=== PATIENT | female | born 1945 | race Caucasian/White ===

== ENCOUNTER 2023-08-11 21:31 | Emergency (ER) | payer MEDICARE, SELFPAY ==
[2023-08-11 21:33] VITALS: BP 187/85; PULSE 61; RESP 18; TEMP 36.2; O2SAT 99; BMI 25.4
--- NOTE | 2023-08-11 22:26 | CT_ITS ---
EXAM: CT HEAD WITHOUT INTRAVENOUS CONTRAST CLINICAL INDICATION: Neuro deficit, acute, stroke suspected TECHNIQUE: Multiple axial images were obtained of the head without intravenous contrast. This CT exam was performed using one or more of the following dose reduction techniques: automated exposure control, adjustment of the mA and/or kV according to patient size, and/or use of iterative reconstruction technique. RADIATION DOSE: Total DLP: 829.85 mGy-cm. COMPARISON: No relevant prior studies available. FINDINGS: BRAIN AND EXTRA-AXIAL SPACES: Findings of mild age-related atrophy present with prominence of the cortical sulci, basal cisterns, sylvian fissures and ventricles. Moderate patchy chronic small vessel ischemic changes noted within the deep white matter tracts. Tiny old lacunar infarction noted within the left thalamus. No intra- or extra-axial hemorrhage. No intracranial mass or mass effect. Posterior fossa structures are unremarkable. [place]-white matter differentiation is preserved. BONES/JOINTS: No discrete lytic or blastic abnormalities. VASCULATURE: Atherosclerotic vascular calcification is present. The middle cerebral arteries are not hyperdense. SINUSES: Clear. Right maxillary antrum is smaller than the left. MASTOID AIR CELLS: Unremarkable. Clear. ORBITS: Previous cataract extraction. SELLA: Empty sella is incidentally noted. ASPECTS SCORE: 10/10. CT/Brain/Head without Contrast IMPRESSION: 1. Atrophy with patchy chronic small vessel ischemic changes. 2. No acute intracranial abnormality identified. Electronically Signed: Charlie Soto MD at 23:31 EDT ,
--- NOTE | 2023-08-11 22:26 | EKG12_ITS ---
Test Reason : DYSRHYTHMIA Blood Pressure : / mmHG Vent. Rate : 054 BPM Atrial Rate : 054 BPM P-R Int : 178 ms QRS Dur : 090 ms QT Int : 462 ms P-R-T Axes : 023 -26 -13 degrees QTc Int : 438 ms Sinus bradycardia Minimal voltage criteria for LVH, may be normal variant ( R in aVL ) ST & T wave abnormality, consider anterolateral ischemia Abnormal ECG Confirmed by Alex Lawrence ([id number]), script editor WILMA LOJA ([id number]) on 08/12/2023 8:10:30 AM Referred By: Confirmed By:Alex Lawrence
[2023-08-11 22:53] VITALS: BP 203/72; PULSE 57; RESP 19; O2SAT 97
[2023-08-11 23:06] LABS: Absolute Lymphocyte Count 2.23 X10^3/uL (0.83-4.51); Absolute Neutrophil Count 2.5 X10^3/uL (2.0-7.7); Basophil# 0.06 X10^3/uL; Basophil% 1.1 % (0-1); Eosinophil# 0.08 X10^3/uL; Eosinophils% 1.5 % (0-5); Hematocrit 33.9 % (37-47); Hemoglobin 11.2 g/dL (12.0-15.0); Lymphocyte # 2.23 X10^3/ul (0.83-4.51); Lymphocyte % 41.5 % (19-41); Mean Corpuscular Hgb 29.5 pg (27.0-32.0); Mean Corpuscular Volume 89.2 fL (81-99); Monocyte# 0.53 X10^3/uL; Monocyte% 9.9 % (0-10); NRBC Flagged by Analyzer 0 % (0-5); Neutrophil # 2.45 X10^3/uL (2.7-7.7); Neutrophil % 45.6 % (47-70); Platelet Count 219 K/mm3 (150-450); RBC Distribution Width CV 14.2 % (11.6-14.6); RBC Distribution Width SD 45.5 fl (35.1-43.9); White Blood Count 5.4 K/mm3 (4.4-11.0)
[2023-08-11 23:34] LABS: Anion Gap 6 (5-15); BUN 11 mg/dL (7-18); BUN/Creat Ratio 15.2 RATIO (10-20); Calcium,Total 9.1 mg/dL (8.5-10.1); Chloride 105 mmol/L (98-107); Creatinine, Serum 0.72 mg/dL (0.55-1.02); EST Glomerular Filtration Rate 83 mL/min (>60); Est Glom Filt Rate - Afr Amer 101 mL/min (>60); Estimated Creatinine Clearance 53.06 ml/min; Glucose 184 mg/dL (74-106); Potassium 3.4 mmol/L (3.5-5.1); Sodium Level 137 mmol/L (136-145)
[2023-08-11 23:51] VITALS: BP 165/93; PULSE 56; RESP 18; O2SAT 99
--- NOTE | 2023-08-12 00:05 | ED.VIS.STROK ---
HPI History of Present Illness Chief Complaint: Eye Problem Informant: patient and family Narrative Narrative: Patient has symptoms for the past 3 weeks including blurry vision right eye, diplopia, disequilibrium/dizziness that she has with standing up and with turning her head in certain positions sometimes but it is intermittent, numbness in both feet/legs. She feels like her right arm is a little weak. She has had no problems with speech or understanding others. No fevers, chills, other illness. She states she had a blood test today and as a result of what ever it showed, she was told to go to the hospital and get an MRI of her brain. She does not have the results of any of these labs and they were not done at our facility. She states she went to her local hospital which is [place], and she states that they told her if she wanted an MRI she needed to come here to this hospital so she presents to the ER for that reason. She states she already saw an eye doctor and they told her that they do not think it is her eye that is giving her the vision problems. [facility] Medical History Diabetes Migraines Hypertension Breast CA Colonoscopy planned Prolapsed bladder Cataract Carpal tunnel syndrome Home Medications ?Medication ?Instructions ?Recorded ?Last Taken ?Type meclizine 25 mg tablet 25 mg PO Q8H PRN PRN Dizziness #20 08/12/23 Unknown Rx tabs simvastatin 80 mg tablet 80 mg PO DAILY #30 tabs 08/12/23 Unknown Rx Allergy/AdvReac Type Severity Reaction Status Date / Time Unable to Assess Allergy Verified 08/11/23 21:33 Surgical History Stented coronary artery H/O lumpectomy Hx of cholecystectomy Social History Smoking Status: Never smoker ROS ROS ED Constitutional Constitutional ED: Denies chills or fever(s) Eyes Eyes: Reports blurry vision right, change in vision and diplopia ENT ENT ED: Reports ear pain right; Denies rhinorrhea or sore throat Cardiovascular Cardiovascular: Denies chest pain or palpitations Respiratory/Chest Respiratory/Chest: Reports dyspnea on exertion and other Details: Dyspnea on exertion is chronic and no different than usual ; Denies cough Gastrointestinal Gastrointestinal: Denies abdominal pain, diarrhea, nausea or vomiting Genitourinary Genitourinary ED: Denies dysuria or hematuria Musculoskeletal Musculoskeletal: Denies back pain or neck pain Integumentary Denies abscess or rash Neurologic Neurologic: Reports headache(s), paresthesias and weakness Psychiatric Psychiatric: Denies suicidal thoughts EXAM Physical Exam Const Vital Signs: 08/11/23 21:33 08/11/23 22:40 08/11/23 22:53 Temperature 97.1 F L Temperature Source Temporal Pulse Rate 61 57 L Respiratory Rate 18 19 H Respiratory Effort Normal Non-Labored Blood Pressure 187/85 H 203/72 H Blood Pressure Mean 119 115 Pulse Ox 99 97 Oxygen Delivery Method Room Air Room Air 08/11/23 23:51 Temperature Temperature Source Pulse Rate 56 L Respiratory Rate 18 Respiratory Effort Blood Pressure 165/93 H Blood Pressure Mean 117 Pulse Ox 99 Oxygen Delivery Method Room Air Positive well nourished and well developed General Appearance ED: well developed and NAD HEENT Reports moist mucous membranes HEENT Narrative: TMs not visible due to hard cerumen blocking all visibility. No discomfort with manipulating the pinna or the tragus bilaterally. No periauricular lymphadenopathy or mastoid tenderness/swelling. normocephalic and atraumatic Eyes PERRL and EOMs intact bilaterally Neck full ROM and supple Resp normal respiratory effort and clear to auscultation bilaterally Cardio regular rate, regular rhythm and no murmurs GI non-tender and non-distended Auscultation: normoactive bowel sounds Palpation: soft Back/Spine no CVA tenderness General Back: other FROM Extremity normal to inspection General Extremety ED: Negative for edema, pulses abnormal or tenderness General Extremity: Negative for edema or pulses abnormal Neuro oriented x3 and CN's II-XII intact bilaterally Neuro Narrative: Decree sensation subjectively both lower extremities symmetrically, but sensation is grossly intact. Normal speech. Sensorium / Orientation: awake and alert Motor Exam: strength 5/5 throughout Psych mental status grossly normal Skin no rashes or lesions noted and no wounds NIHSS NIHSS Initial: 1a Level of Consciousness: 0 1b LOC Questions (Score 2 if aphasic/stupor): 0 1c LOC Commands (Only score 1st attempt): 0 2 Best Gaze (If aphasic, use reflexive mvmts.): 0 3 Visual: 0 4 Facial Palsy: 0 5 Motor Arm Right (UN = amputation/fusion): 0 5 Motor Arm Left: 0 6 Motor Leg Right: 0 6 Motor Leg Left: 0 7 Limb ataxia (Only + if out of proportion): 2 (Seems to be ataxic in all 4 extremities, patient states it is related to the fact that she has diplopia and blurry vision in the right eye) 8 Sensory (Aphasia/stupor=0 or 1, coma=2): 1 9 Best Language: 0 10 Dysarthria (mute, coma=2, intubated=UN): 0 11 Extinction and Inattention (only scored if +): 0 Total Score: 3 MDM MDM MDM Narrative Medical decision making narrative: Obtained a stroke workup in this patient but she does not require any emergency vascular imaging since she has had symptoms that been stable for the past 3 weeks[address] I reviewed the CT images as well as the result which I agree with, it is negative for any acute. The objective ataxia that she has is questionable given her vision issues. Her EKG shows a sinus rhythm and her blood work is fairly unremarkable for 77-year-old woman, being mildly anemic. I reevaluated her. She is comfortable and doing well. She had some high blood pressure reading in the right now she is reading 165 systolic over 57 diastolic. I asked her if her vision problems are limiting her at home and she feels unsafe getting around with regards to that where the disequilibrium, she states no to both and is comfortable being at home. Given this I cannot justify admission for any other studies emergently. She is here with family member who confirms that she has not been unsafe at home. She states she had a PCP who left, she lives in [place] where I do not have resources for primary care physicians, and she does not have a PCP currently. She does see specialist. She states she received some stents, she takes aspirin and clopidogrel, and is not on any anticoagulants but has no idea what medication she takes are her other medical problems. She thinks she is not on a cholesterol medication. Differential at this point includes a small cerebellar stroke is not showing up on CT, mass, MS although less likely, hypertension issues microvascular disease, peripheral vertigo given her ear discomfort and disequilibrium. She states it started maybe around the time she started a heart medication as I advised her I do not think this is lightheadedness due to metoprolol. At this point I recommend continuing aspirin and clopidogrel, I am going to prescribe her a high-dose statin, as well as meclizine to use as needed for her disequilibrium and I am going to refer her to neurology here since I do not have a PCP to refer her to. She is comfortable that plan will continue searching for PCP that is local to her. Lab Data Attestation: I reviewed the patient's lab results. Labs: Laboratory Results - last 24 hr 08/11/23 22:57 WBC 5.4 RBC 3.80 L Hgb 11.2 L Hct 33.9 L MCV 89.2 MCH 29.5 MCHC 33.0 RDW Std Deviation 45.5 H RDW Coeff of Tang 14.2 Plt Count 219 MPV 10.0 Immature Gran % (Auto) 0.400 Neut % (Auto) 45.6 L Lymph % (Auto) 41.5 H [place] % (Auto) 9.9 Eos % (Auto) 1.5 Baso % (Auto) 1.1 H Absolute Neuts (auto) 2.5 Absolute Lymphs (auto) 2.23 Nucleated RBC % 0 Sodium 137 Potassium 3.4 L Chloride 105 Carbon Dioxide 26.0 Anion Gap 6 BUN 11 Creatinine 0.72 Estim Creat Clear Calc 53.06 Est GFR (MDRD) Af Amer 101 Est GFR (MDRD) Non-Af 83 BUN/Creatinine Ratio 15.2 Glucose 184 H Calcium 9.1 Radiography Diagnostic Testing: Clinical Impression(s) from Imaging Studies Brain CT 08/11/23 22:26 IMPRESSION: 1. Atrophy with patchy chronic small vessel ischemic changes. 2. No acute intracranial abnormality identified. Electronically Signed: Charlie Soto MD at 23:31 EDT , Rhythm Strip Rhythm Strip: Sinus Rhythm Rate: 54 Ectopy: None EKG Initial EKG: Attestation: I personally reviewed and interpreted this EKG as follows: Interpretation: Sinus Rhythm and No Acute Injury Pattern Stroke Documentation Questions Stroke Team Activated: No (Symptoms greater than 3 weeks/timing) Was Patient considered for Endovascular Intervention?: No-CTA not indicated IV Thrombolytic Administered: No Discharge Plan Triage Chief Complaint: Eye Problem Other Complaint: Dizziness ED Provider: Theo Nieto Dx/Rx/DC Orders Clinical Impression: Diplopia, Dysequilibrium, Accelerated hypertension, Blurred vision, right eye Instructions: ED Double Vision (Diplopia), ED Dizziness, Uncertain Cause, ED High Blood Pressure Hypertension Prescriptions: New simvastatin 80 mg tablet 80 mg PO DAILY Qty: 30 0RF meclizine 25 mg tablet 25 mg PO Q8H PRN PRN (Reason: Dizziness) Qty: 20 0RF Primary Care Provider: Care Physician,No Primary Referrals: Tristan Montaño MD [Non-Staff -Ordering Privileges] - As soon as possible (For evaluation of neurologic symptoms and possible referral for outpatient MRI) Doctor,Your [Non-Staff] - As soon as possible (Search your local directory for PCP) Print Language: Korean Disposition Disposition: Home, Self Care
[2023-08-12 01:26] VITALS: BP 168/73; PULSE 57; RESP 18; TEMP 36.6; O2SAT 97
== END 2023-08-12 01:32 | disposition home or self-care (01) ==
PROVIDERS: Emergency Provider Emergency Medicine; Visit Provider Emergency Medicine
DX: H53.8 Other visual disturbances (principal); E11.9 Type 2 diabetes mellitus without complications; R42 Dizziness and giddiness; H53.2 Diplopia; I10 Essential (primary) hypertension; Z85.3 Personal history of malignant neoplasm of breast; Z79.899 Other long term (current) drug therapy; Z95.5 Presence of coronary angioplasty implant and graft; Z90.49 Acquired absence of other specified parts of digestive tract; Z79.82 Long term (current) use of aspirin; Z79.02 Long term (current) use of antithrombotics/antiplatelets
CPT/HCPCS: 70450; 80048; 85025; 93005; 99285; A4216